=== PATIENT | male | born 1955 | race Hispanic/Latino ===

== ENCOUNTER 2019-05-18 09:41 | Emergency (ER) | payer SELFPAY ==
[2019-05-18 09:48] VITALS: BP 168/93; PULSE 65; RESP 18; TEMP 36.1; O2SAT 97
--- NOTE | 2019-05-18 09:58 | ED.GENADULT ---
HPI - General Adult General Chief complaint: Extremity Injury, Lower <Dandre Connell PA-C - Last Filed: 05/18/19 10:05> Stated complaint: r foot injury <Dandre Connell PA-C - Last Filed: 05/18/19 10:05> Time Seen by Provider: 05/18/19 09:48 <Dandre Connell PA-C - Last Filed: 05/18/19 10:05> Source: patient <Dandre Connell PA-C - Last Filed: 05/18/19 10:05> Mode of arrival: ambulatory <Dandre Connell PA-C - Last Filed: 05/18/19 10:05> Limitations: no limitations <Dandre Connell PA-C - Last Filed: 05/18/19 10:05> History of Present Illness HPI narrative: Patient is a 63-year-old diabetic male with history of gout presenting with 1 week duration of right great toe pain patient notes pain is similar to prior gout exacerbations is typically taken colchicine in the past. Patient notes moderate aching pain worse with any mild touch or manipulation. Patient denies fever chills injury or trauma <Dandre Connell PA-C - Last Filed: 05/18/19 10:05> Related Data Allergies/adverse reactions: Allergies Allergy/AdvReac Type Severity Reaction Status Date / Time No Known Allergies Allergy Verified 05/18/19 09:54 <Dandre Connell PA-C - Last Filed: 05/18/19 10:05> Review of Systems Review of Systems: Narrative: CONSTITUTIONAL: Denies fever, chills, or sweats. SKIN: Denies rash or itching. MUSCULOSKELETAL: Denies decreased range of motion or strength NEUROLOGIC: Denies numbness, or weakness. <Dandre Connell PA-C - Last Filed: 05/18/19 10:05> [facility] Past Medical History Medical History: Medical History Diabetes mellitus Gout Hypertension <Dandre Connell PA-C - Last Filed: 05/18/19 10:05> Social History Social History: Social History (Updated 05/18/19 @ 10:02 by Dandre Connell PA-C) Smoking status: Never smoker <Dandre Connell PA-C - Last Filed: 05/18/19 10:05> Exam Narrative: Exam Narrative: GENERAL: Well-appearing, well-nourished, and in no acute distress. HEAD: Normocephalic, atraumatic. EYES: PERRLA and EOMI. ENT: Nares clear, no rhinorrhea or epistaxis. Mucous membranes moist. CHEST: Clear to auscultation. No respiratory distress. No wheezes rales or rhonchi HEART: Regular rate and rhythm. No murmur heard. EXTREMITIES: Normal range of motion. No edema. Tenderness of the right great toe with no deformity SKIN: Warm, dry, no rash. NEURO: No focal deficits. Alert and oriented x3. Cranial nerves II through XII grossly intact PSYCH: Normal mood and affect. <ARCHANA Zimmerman Last Filed: 05/18/19 10:05> Course Course Emergency Course: Patient in the room in no distress aware of case findings treatment plan and diagnosis <ARCHANA Zimmerman Last Filed: 05/18/19 10:05> Vital Signs Vital signs: Vital Signs Temperature 36.1 C L 05/18/19 09:48 Pulse Rate 65 05/18/19 09:48 Respiratory Rate 18 05/18/19 09:48 Blood Pressure 168/93 H 05/18/19 09:48 Pulse Oximetry 97 05/18/19 09:48 Temperature 36.1 C L 05/18/19 09:48 Pulse Rate 65 05/18/19 09:48 Respiratory Rate 18 05/18/19 09:48 Blood Pressure 168/93 H 05/18/19 09:48 Pulse Oximetry 97 05/18/19 09:48 <ARCHANA Zimmerman Last Filed: 05/18/19 10:05> Vital Signs Temperature 36.1 C L 05/18/19 09:48 Pulse Rate 65 05/18/19 09:48 Respiratory Rate 18 05/18/19 09:48 Blood Pressure 168/93 H 05/18/19 09:48 Pulse Oximetry 97 05/18/19 09:48 Temperature 36.1 C L 05/18/19 09:48 Pulse Rate 65 05/18/19 09:48 Respiratory Rate 18 05/18/19 09:48 Blood Pressure 168/93 H 05/18/19 09:48 Pulse Oximetry 97 05/18/19 09:48 <Nay Hanson MD - Last Filed: 05/18/19 10:11> Medical Decision Making MDM Narrative Medical decision making narrative: Patients injury or pain is consistent with musculoskeletal etiology. No signs o
[2019-05-18] MEDS: COLCHICINE 0.6 MG TABLET 1.2 MG PO (10:12)
[2019-05-18] MEDS: KETOROLAC (*BKC) 60 MG/2 ML VIAL 30 MG IM (10:12)
== END 2019-05-18 10:40 | disposition home or self-care (01) ==
PROVIDERS: Emergency Provider Emergency Medicine; PCP Registered Nurse
DX: M10.9 Gout, unspecified (principal); E11.9 Type 2 diabetes mellitus without complications; I10 Essential (primary) hypertension
CPT/HCPCS: 96372; 99283; A9270; J1885

== ENCOUNTER 2020-01-20 14:22 | Emergency (ER) | payer OTHER, SELFPAY ==
--- NOTE | 2020-01-20 14:32 | ED.LOWEXIN ---
HPI - Extremity Injury (Lower) General Chief Complaint: Extremity Injury, Lower Stated Complaint: right foot pain, hx gout Time Seen by Provider: 01/20/20 14:30 History of Present Illness HPI Narrative: Pain in the right foot for the past few days consistent with previous gout flares. PCP prescribed colchicine yesterday. It is not working fast enough and he feels the pain is getting worse. No fever, chills, trauma, wound. Related Data Home Medications Medication Instructions Recorded Confirmed atenolol 100 mg PO 01/20/20 hydrochlorothiazide 25 mg PO 01/20/20 lisinopril 40 mg PO 01/20/20 metformin 1,000 mg PO 01/20/20 pravastatin 80 mg PO 01/20/20 Allergies Allergy/AdvReac Type Severity Reaction Status Date / Time No Known Allergies Allergy Verified 01/20/20 14:44 Review of Systems Review of Systems: All systems reviewed & are unremarkable except as noted in HPI and below Constitutional: Constitutional: Denies chills and Denies fever(s) Cardiovascular: Cardiovascular: Denies chest pain Respiratory: Respiratory: Denies dyspnea Gastrointestinal: Gastrointestinal: Denies nausea Neurologic: Denies numbness and Denies weakness [facility] Past Medical History Medical History Diabetes mellitus Gout Hypertension Social History Social History Smoking status: Never smoker Gender identity (if verbalized by the patient): Male Exam Const: General: no acute distress and alert Orientation/consciousness: patient oriented x3 HENMT: Head: normal to inspection Resp: Effort & Inspection: normal respiratory effort Auscultation: clear to auscultation bilaterally Cardio: Rate: regular rate Rhythm: regular rhythm Other: 2 + right DP Skin: Other: Mild redenss to dorsum of right foot. Neuro: General: patient oriented x3, moves all extremities and no focal motor deficits Speech: normal speech Extrem: Other: Tenderness over mid foot on the right Course Vital Signs Vital signs: Vital Signs Temperature 36.7 C 01/20/20 14:40 Pulse Rate 64 01/20/20 14:40 Respiratory Rate 18 01/20/20 14:40 Blood Pressure 171/80 H 01/20/20 14:40 Pulse Oximetry 100 01/20/20 14:40 Temperature 36.7 C 01/20/20 14:40 Pulse Rate 68 01/20/20 15:11 Respiratory Rate 14 01/20/20 15:11 Blood Pressure 152/87 H 01/20/20 15:11 Pulse Oximetry 99 01/20/20 15:11 MDM - Extremity Injury (Lower) MDM Narrative Medical decision making narrative: He is in significant Pain I will augment the colchicine with a steroid and small amount of pain medication. Medical Records Attestation: I reviewed the patient's medical records. Discharge Plan Discharge Clinical Impression: Gout Patient Disposition: Home, Self-Care Condition: Stable Instructions: Gout (ED) Prescriptions: New prednisone 20 mg tablet 40 mg PO DAILY Qty: 10 RF: 0 hydrocodone-acetaminophen [[place]] 5-325 mg tablet 1 tablet PO Q6H PRN (Reason: pain) Qty: 5 RF: 0 No Action colchicine 0.6 mg capsule 0.6 mg PO BID Qty: 4 RF: 0 indomethacin 75 mg capsule, extended release 75 mg PO DAILY Qty: 4 RF: 0 atenolol 100 mg tablet 100 mg PO RF: 0 pravastatin 80 mg tablet 80 mg PO RF: 0 metformin 1,000 mg tablet 1,000 mg PO RF: 0 hydrochlorothiazide 25 mg tablet 25 mg PO RF: 0 lisinopril 40 mg tablet 40 mg PO RF: 0 Follow-up/Referrals: Akil,KARLA Zaman [Primary Care Provider] -
[2020-01-20 14:40] VITALS: BP 171/80; PULSE 64; RESP 18; TEMP 36.7; O2SAT 100
[2020-01-20] MEDS: HYDROcodone/acetaminophen (*CRX) 5-325 MG TABLET 1 TAB PO (14:53)
[2020-01-20] MEDS: predniSONE 20 MG TABLET 40 MG PO (14:53)
[2020-01-20 15:11] VITALS: BP 152/87; PULSE 68; RESP 14; O2SAT 99
== END 2020-01-20 15:13 | disposition home or self-care (01) ==
PROVIDERS: Emergency Provider Emergency Medicine; PCP Registered Nurse
DX: M10.9 Gout, unspecified (principal); E11.9 Type 2 diabetes mellitus without complications; Z79.84 Long term (current) use of oral hypoglycemic drugs
CPT/HCPCS: 99283; A9270; J7512

== ENCOUNTER 2020-03-26 10:23 | Emergency (ER) | payer OTHER, SELFPAY ==
--- NOTE | ~2020-03-26 | CT_ITS ---
EXAMINATION: CT soft tissue neck w con DATE: 03/26/2020 13:07 INDICATION: Right throat pain, cough for 2 months TECHNIQUE: Computed tomography (CT) of the neck was performed with 75 mL Omnipaque-350 intravenous co ntrast. Automated exposure control and iterative reconstruction technique were employed. Exam dose: 555.17 mGy-cm total exam DLP. COMPARISON: None FINDINGS: No cervical mass lesion or lymphadenopathy is detected. Parotid glands and submandibular glands are unremarkable. Normal size and homogeneous enhancement of the thyroid gland. No superior mediastinal mass lesion or lymphadenopathy. Normal caliber of the thor acic aortic arch. The airway is patent. Minimal new comparison thickening of the maxillary sinuses. The included paranasal sinuses are otherw ise unremarkable. Normal development and aeration of the mastoid air cells. The included upper lung kumar are clear. There is degenerative spurring throughout the cervical spine. There is prominent degenerative spurrin g of the upper thoracic spine. IMPRESSION: No cervical mass lesion or lymphadenopathy. Reviewed, dictated and finalized at Location [facility]. Reviewed, dictated and finalized at location A. ECTIVE BARGAINING SPECIALIST
--- NOTE | ~2020-03-26 | XR_ITS ---
EXAMINATION: XR chest 1V portable EXAM DATE: 03/26/2020 12:16 INDICATION: Cough. TECHNIQUE: Portable AP frontal chest x-ray was obtained. Comparison is made to prior examination from 04/07/2017. FINDINGS: The lungs are clear. There are no pleural effusions. Cardiac silhouette is prominent but magnified on this AP technique. There is no pneumothorax suspected. The bones and soft tissues are unremarkable. There is no significant interval change. IMPRESSION: No acute cardiopulmonary findings. Reviewed, dictated and finalized at location B. K MANAGER
[2020-03-26 10:31] VITALS: BP 199/91; PULSE 61; RESP 16; TEMP 35.7
--- NOTE | 2020-03-26 11:32 | ED.GENADULT ---
HPI - General Adult General Chief complaint: Upper Respiratory Infection Stated complaint: Cough x2 months, back pain Time Seen by Provider: 03/26/20 11:31 History of Present Illness HPI narrative: Patient 64 years old male complaining of dry cough for the last 2 months. Patient reported that the cough getting worse over the last 3 days. Worse laying down flat, better laying down on either sides. Patient also been complaining of right neck and submandibular tenderness for years. Patient denies any fever, chills, nausea, vomiting, chest pain, shortness of breath, COVID-19 infection or exposure to anybody known having COVID-19. Patient does not smoke and drinks occasionally, history of diabetes hypertension and hyperlipidemia. Related Data Home Medications Medication Instructions Recorded Confirmed atenolol 100 mg PO HS 01/20/20 hydrochlorothiazide 25 mg PO HS 01/20/20 lisinopril 40 mg PO DAILY 01/20/20 metformin 1,000 mg PO 01/20/20 pravastatin 80 mg PO HS 01/20/20 Allergies Allergy/AdvReac Type Severity Reaction Status Date / Time No Known Allergies Allergy Verified 03/26/20 10:35 Review of Systems Review of Systems: Narrative: CONSTITUTIONAL: Denies fever, chills, or sweats. EYES: Denies visual changes, redness, or discharge. ENT: Denies rhinorrhea, congestion, sore throat, or otalgia. CARDIOVASCULAR: Denies chest pain, palpitations, or edema. RESPIRATORY: Denies cough or dyspnea. GASTROINTESTINAL: Denies abdominal pain, nausea, vomiting, or diarrhea. GENITOURINARY: Denies dysuria or hematuria. SKIN: Denies rash or itching. MUSCULOSKELETAL: Denies back pain, joint pain, or myalgia. NEUROLOGIC: Denies headache, numbness, or weakness. PSYCHIATRIC: Denies anxiety or depression. PMFSH Past Medical History Medical History Diabetes mellitus Gout Hypertension Social History Social History Smoking status: Never smoker Gender identity (if verbalized by the patient): Male Exam Narrative: Exam Narrative: General appearance: Well-developed, well-nourished Skin: Normal color Head: Normocephalic, nontraumatic Eyes: Clear conjunctiva ENT: Oropharynx normal, ears normal, nose normal, right neck examination showed no swelling, no mass, no lymphadenopathy, no rash. Neck: Supple, nontender Chest and respiratory: Airway patent, no respiratory distress, no accessory muscle use Heart: Regular rate/rhythm Abdomen: Soft, nontender, no organomegaly, quiet bowel sounds Vascular: Normal peripheral pulses, normal capillary refill. Musculoskeletal: Normal range of motion, nontender back Neurologic: Alert and oriented ?3, RN WOUND CARE is normal as tested, no gross motor deficit Course Reevaluation(s) Reevaluation #1: Patient blood work-up and physical exam showed no significant abnormality. Patient sinus bradycardia high likely secondary to the beta-anne. Patient will be discharged on Tessalon and albuterol treatment to follow-up with certified first assistant for further evaluation. Patient agreed with discharge. Date: 03/26/20 Time: 13:38 Vital Signs Vital signs: Vital Signs Temperature 35.7 C L 03/26/20 10:31 Pulse Rate 61 03/26/20 10:31 Respiratory Rate 16 03/26/20 10:31 Blood Pressure 199/91 H 03/26/20 10:31 Temperature 35.7 C L 03/26/20 10:31 Pulse Rate 51 L 03/26/20 12:20 Respiratory Rate 19 03/26/20 12:20 Blood Pressure 191/90 H 03/26/20 12:20 Pulse Oximetry 100 03/26/20 12:20 Medical Decision Making [facility] Narrative Medical decision making narrative: Patient presents with dry cough for the last 2 months. L
--- NOTE | 2020-03-26 11:52 | ECG_ITS ---
Measurements Intervals [place] Rate: 50 P: -1 [place]: 192 QRS: -11 QRSD: 92 T: 36 QT: 448 QTc: 409 Interpretive Statements SINUS BRADYCARDIA NONSPECIFIC T-WAVE ABNORMALITY- ANTEROLAT/INF LEADS BASELINE ARTIFACT- I, III, AVL BORDERLINE ECG Electronically Signed On 03-26-2020 12:52:06 SOYFREEZE OPERATOR by Amandeep Gonzalez D.O.
[2020-03-26 12:20] VITALS: BP 191/90; PULSE 51; RESP 19; O2SAT 100
[2020-03-26 12:37] LABS: Basophils Percent Auto 0.5 % (0.2-1.2); Eosinophils Percent Auto 0.6 % (0-4.4); Hematocrit 47.7 % (42.0-52.0); Hemoglobin 16.9 g/dL (14.0-18.0); Immature Granulocyte Absolute 0.01 K/mm3 (0.00-0.031); Immature Granulocyte Percent A 0.2 % (0-0.5); Lymphocytes Absolute Auto 2.48 K/mm3 (0.9-3.2); Lymphocytes Percent Auto 39.1 % (18.3-44.2); Mean Corpuscular HGB Conc 35.4 g/dl (32-36); Mean Corpuscular Hemoglobin 30.2 pg (26-34); Mean Corpuscular Volume 85.3 fl (80-100); Monocytes Absolute Auto 0.5 K/mm3 (0.1-0.6); Monocytes Percent Auto 7.4 % (2.6-8.5); Neutrophils Absolute Auto 3.3 K/mm3 (1.3-6.7); Neutrophils Percent Auto 52.2 % (45.5-73.1); Platelet Count Result 206 k/mm3 (150-375); Red Blood Count 5.59 M/mm3 (4.6-6.20); Red Cell Distribution Width 13.3 % (11.5-14.5); White Blood Count 6.3 K/mm3 (4.5-10.0)
[2020-03-26 12:45] LABS: Alanine Aminotransferase 20 U/L (4-50); Albumin Level 4.6 g/dL (3.5-5.1); Alkaline Phosphatase 58 U/L (38-126); Anion Gap 6 mmol/L (8-16); Aspartate Amino Transferase 26 U/L (17-59); Bilirubin,Total 0.8 mg/dL (0.2-1.3); Blood Urea Nitrogen 24 mg/dL (9-20); Calcium 9.9 mg/dL (8.4-10.2); Carbon Dioxide 34 mmol/L (22-30); Chloride 98 mmol/L (98-107); Estimated CRCL calculation 61 ml/min; Estimated Glomerular Filt Rate > 60; Glucose 196 mg/dL (75-110); Potassium 3.9 mmol/L (3.4-5.0); Sodium 138 mmol/L (137-145)
[2020-03-26 12:57] LABS: NT Pro B Type Natriuretic Pept 122 PG/ML (5-100); Troponin I < 0.012 ng/mL (0.000-0.034)
[2020-03-26 13:59] VITALS: BP 178/91; PULSE 55; RESP 16; O2SAT 100
== END 2020-03-26 14:01 | disposition home or self-care (01) ==
PROVIDERS: Emergency Provider Emergency Medicine; PCP Registered Nurse
DX: R00.1 Bradycardia, unspecified (principal); R05 Cough; E11.9 Type 2 diabetes mellitus without complications; Z79.84 Long term (current) use of oral hypoglycemic drugs; I10 Essential (primary) hypertension
CPT/HCPCS: 36415; 70491; 71045; 80053; 83880; 84443; 84484; 85025; 87804; 93005; 99284; Q9967

== ENCOUNTER 2020-06-03 09:05 | Outpatient (CLI) | payer OTHER, SELFPAY ==
[2020-06-07 02:58] LABS: Immunoglobulin E 35 kU/L (<=114)
== END 2020-06-03 09:06 | disposition home or self-care (01) ==
PROVIDERS: PCP Registered Nurse; Visit Provider Internal Medicine Critical Care Medicine
DX: R05 Cough (principal)
CPT/HCPCS: 36415; 82785; 86606

== ENCOUNTER 2020-06-18 09:27 | Outpatient (CLI) | payer OTHER, SELFPAY ==
--- NOTE | ~2020-06-18 | CT_ITS ---
EXAMINATION:CT chest high resolution wo co DATE: 06/18/2020 09:43 INDICATION: Cough. TECHNIQUE: Computed tomography (CT) of the chest was performed without intravenous contrast. Automate d exposure control and iterative reconstruction technique were employed. The dose-length product (DLP ) was 349.62 mGy-cm. COMPARISON: CT abdomen and pelvis 09/15/2017, neck CT 03/26/2020 FINDINGS: A calcified right lung nodule and calcified right hilar lymph nodes are consistent with old granulomatous disease. No bronchiectasis or honeycombing. No pleural effusion. The heart size is nor mal. There are coronary artery calcifications. No pericardial effusion. There are no pathologically e nlarged lymph nodes. There are cysts in the kidneys measuring up to 4.0 cm on the right. There is mil d bilateral gynecomastia. There are bridging endplate osteophytes at multiple levels in the spine, co nsistent with diffuse idiopathic skeletal hyperostosis (DISH). IMPRESSION: 1. No significant lung disease. Reviewed, dictated and finalized at location A.
== END 2020-06-18 09:28 | disposition home or self-care (01) ==
PROVIDERS: PCP Registered Nurse; Visit Provider Internal Medicine Critical Care Medicine
DX: R05 Cough (principal)
CPT/HCPCS: 71250

== ENCOUNTER 2020-06-26 08:02 | Outpatient (CLI) | payer OTHER, SELFPAY ==
--- NOTE | 2020-06-26 15:07 | P.PCNPFT_ITS ---
PFT Procedure Performed PFT Procedure Performed Spirometry with Pre/Post Bronchodilator Plethysmography (Lung Vol) Diffusing Cap (DLCO) Flow Vol Loop PFT Interpretation This is a pulmonary function test with pre and post-bronchodilator spirometry, plethysmography and diffusing capacity. The test was performed and results interpreted in accordance with the 2019 and 2005 ATS/ERS Task Force guidelines respectively using the Global Lung Function Initiative-2012 reference equations. Patient demonstrated good effort and cooperation. Reproducibility criteria were met. The quality of the pre bronchodilator spirometry maneuver was Grade A and post bronchodilator spirometry maneuver was Grade A. Findings: Spirometry: There is decreased maximal expiratory airflow at low lung volumes with a mildly concave expiratory flow tracing. The pre bronchodilator FVC is 3.10 L, 87% predicted. The pre bronchodilator FEV1 is 2.17 L, 77% predicted. The FEV1: FVC ratio is 70%. The post bronchodilator FVC is 3.27 L, representing a 6% increase. The post bronchodilator FEV1 is 2.20 L, representing 1% increase. Plethysmography: The total lung capacity is 3.82 L, 61% predicted. The functional residual capacity is 1.08 L, 34% predicted. The residual volume is 0.59 L, 29% predicted. Diffusion capacity: The absolute diffusion capacity is 20.7, 79% predicted. The diffusing capacity corrected for alveolar volume is 4.89, 111% predicted. Impression: There is a combined obstructive and restrictive ventilatory abn ormality. There are no guidelines to assign the severity of obstruction and restriction with a combined abnormality. In my opinion, given the mildly concaved expiratory flow tracing and minimally decreased FEV1: FVC ratio and mild restrictive abnormality I would state there is a mild obstructive abnormality. There is no significant improvement after inhaling a single dose of albuterol. The diffusing capacity is normal. There are no prior studies for comparison
== END 2020-06-26 08:03 | disposition home or self-care (01) ==
LOC: ANHPFT 08:03
PROVIDERS: PCP Registered Nurse; Visit Provider Internal Medicine Critical Care Medicine
DX: R05 Cough (principal); R94.2 Abnormal results of pulmonary function studies
CPT/HCPCS: 94060; 94726; 94729

== ENCOUNTER 2021-06-28 11:22 | Outpatient (CLI) | payer OTHER, SELFPAY ==
--- NOTE | 2021-06-28 | ECG_ITS ---
Measurements Intervals [place] Rate: 54 P: 51 VT: 230 QRS: -27 QRSD: 119 T: -9 QT: 453 QTc: 429 Interpretive Statements SINUS BRADYCARDIA WITH FIRST DEGREE AV BLOCK INTRAVENTRICULAR CONDUCTION DELAY BORDERLINE T WAVE ABNORMALITY- INFERIOR LEADS BASELINE WANDER- I, II, AVR, AVL, AVF ABNORMAL ECG Electronically Signed On 06-28-2021 12:58:09 CDT by Amandeep Gonzalez D.O.
--- NOTE | ~2021-06-28 | XR_ITS ---
XR chest 2V DATE: 06/28/2021 11:49 INDICATION: Dyspnea since Covid infection in 2020 TECHNIQUE: PA and lateral views COMPARISON: CT chest high resolution scan 03/26/2020 portable AP chest FINDINGS: Normal heart size. Mild aortic unfolding. No hilar or mediastinal enlargement. Mild right apical capping. No pulmonary infiltrate or consolidation, pleural effusion or pulmonary vascular congestion or pneumo thorax is detected. Diffuse idiopathic skeletal hyperostosis of the thoracic spine. There is mild degenerative change at the acromioclavicular joints. IMPRESSION: No active cardiopulmonary disease Reviewed, dictated and finalized at location B.
== END 2021-06-28 11:23 | disposition home or self-care (01) ==
PROVIDERS: PCP Registered Nurse; Visit Provider Registered Nurse
DX: R06.00 Dyspnea, unspecified (principal); R94.31 Abnormal electrocardiogram [ECG] [EKG]
CPT/HCPCS: 71046; 93005

== ENCOUNTER 2021-07-12 19:07 | Emergency (ER) | payer OTHER, SELFPAY ==
--- NOTE | ~2021-07-12 | XR_ITS ---
EXAM: XR lumbar spine 2-3V DATE: 07/12/2021 19:54 HISTORY: pain . COMPARISON: None available. FINDINGS: 6 nonrib-bearing lumbar-type vertebral bodies. The last fully formed disc will be designat ed L6-S1. Bilateral sacralization of L6. Pedicles intact. 1 to 2 mm retrolisthesis of L3 on L4 and L4 on L5. Vertebral body heights preserved. Disc spaces maintained, with multilevel marginal osteophyto sis including bridging anterior osteophytes. Lower lumbar facet sclerosis. No fracture or dislocation . IMPRESSION: No acute osseous finding in the lumbar spine. Reviewed, dictated and finalized at location K.
[2021-07-12 19:10] VITALS: BP 173/72; PULSE 72; RESP 16; TEMP 37.3; O2SAT 98
--- NOTE | 2021-07-12 19:43 | ED.BACK ---
HPI - Back Pain/Injury General Chief Complaint: Back Pain/Injury Stated Complaint: lower back Time Seen by Provider: 07/12/21 19:16 Source: patient Mode of arrival: ambulatory Limitations: no limitations History of Present Illness HPI Narrative: Patient is a 65-year-old male complaining of right lower back pain, 8 out of 10, dull, aching, worse with movement after he missed a step walking down a ladder yesterday, stepped the wrong way and that is when his back started hurting. Patient denies any falls. Patient denies any chest pain, shortness of breath, abdominal pain, urinary symptoms, fever or chills. Patient denies any weakness, numbness or incontinence. Related Data Allergies Allergy/AdvReac Type Severity Reaction Status Date / Time No Known Allergies Allergy Verified 07/12/21 19:15 Review of Systems Review of Systems: All systems reviewed & are unremarkable except as noted in HPI and below Constitutional: Constitutional: Denies body ache(s), Denies chills, Denies excessive sweating, Denies fatigue, Denies fever(s), Denies headache(s), Denies lethargy, Denies malaise, Denies weakness and Denies weight loss Eyes: Eyes: Denies blurry vision, Denies change in vision and Denies loss of vision ENT: Denies dizziness, Denies ear discharge, Denies headache(s), Denies lip swelling, Denies epistaxis, Denies nasal congestion, Denies neck pain, Denies throat swelling and Denies tongue swelling Cardiovascular: Cardiovascular: Denies chest pain, Denies chest pain at rest, Denies chest pain with activity, Denies diaphoresis, Denies rapid heart rate, Denies edema, Denies irregular heart rhythm, Denies lightheadedness, Denies palpitations, Denies dyspnea and Denies dyspnea on exertion Respiratory: Respiratory: Denies chest congestion, Denies cough, Denies hemoptysis, Denies dyspnea and Denies dyspnea on exertion Gastrointestinal: Gastrointestinal: Denies abdominal pain, Denies melena, Denies hematochezia, Denies diarrhea, Denies nausea, Denies vomiting and Denies hematemesis Musculoskeletal: Musculoskeletal: Reports as per HPI, Denies abnormal gait, Denies deformity, Denies joint swelling, Denies limited range of motion, Denies neck pain and Denies numbness Neurologic: Denies Abnormal speech present, Denies abnormal gait, Denies confusion, Denies dizziness, Denies headache(s), Denies focal weakness, Denies loss of vision, Denies numbness, Denies Other visual disturbances, Denies Sensory deficit (Neuro) and Denies weakness Psychiatric: Psychiatric: Denies confusion, Denies depression, Denies auditory hallucinations, Denies homicidal ideation and Denies suicidal ideation Endocrine: Endocrine: Denies cold intolerance, Denies excessive sweating, Denies fatigue, Denies heat intolerance and Denies palpitations Hematologic/Lymphatic: Hematologic/Lymphatic: Denies easy bleeding and Denies easy bruising Allergic/Immunologic: Allergic/Immunologic: Denies lip swelling, Denies throat swelling and Denies tongue swelling PMFSH Comments Past medical history: None Family history: None Social history: Non-smoker no EtOH or drug use Exam Const: General: cooperative, healthy appearing, comfortable, no acute distress, well developed, alert and awake; No confusion Orientation/consciousness: oriented to person, oriented to place, oriented to time, patient oriented x3 and No confusion Limitations: no limitations HENMT: Head: normal to inspection, normocephalic and atraumatic Ears: hearing grossly normal bilaterally, TM normal on the right and TM normal on the left General nose exam: Normal external nose present, Normal nares present and No nasal discharge present Face and sinus: normal facial exam Mouth: Yes Normal oral and palatal mucosa present, Yes lip normal, Yes tongue normal and Yes oropharynx normal Throat: posterior oropharynx normal, tonsils normal and uvula midline Eyes: General: appearance normal, both eyes and all related structures Pupils: Equal,
--- NOTE | 2021-07-12 19:48 | PC.NURSE ---
pt in radiology at this time.
[2021-07-12] MEDS: HYDROcodone/acetaminophen (*CRX) 5-325 MG TABLET 1 TAB PO (20:14)
[2021-07-12] MEDS: KETOROLAC 30 MG/ML VIAL (*BKC) IV PUSH (20:14)
[2021-07-12] MEDS: diazePAM (*CRX) 5 MG TABLET PO (20:14)
[2021-07-12 20:22] VITALS: BP 161/82; PULSE 85; RESP 18; O2SAT 100
[2021-07-12 21:03] VITALS: BP 161/82; PULSE 65; RESP 18; O2SAT 99
== END 2021-07-12 20:50 | disposition home or self-care (01) ==
PROVIDERS: Emergency Provider Emergency Medicine; PCP Registered Nurse
DX: S39.012A Strain of muscle, fascia and tendon of lower back, initial encounter (principal); X50.9XXA Other and unspecified overexertion or strenuous movements or postures, initial encounter
CPT/HCPCS: 72100; 96374; 99284; A9270; J1885

== ENCOUNTER 2021-12-31 19:08 | Emergency (ER) | payer OTHER, SELFPAY ==
--- NOTE | ~2021-12-31 | CT_ITS ---
EXAMINATION: CT abdomen pelvis wo con DATE: 12/31/2021 22:48 INDICATION: Left flank pain. TECHNIQUE: Computed tomography (CT) of the abdomen and pelvis was performed without intravenous contr ast. Automated exposure control and iterative reconstruction technique were employed. The dose-length product was 309.10 mGy-cm. COMPARISON: CT abdomen and pelvis 09/15/2017, 08/21/2015 FINDINGS: The visualized portions of the lung bases demonstrate mild atelectasis. No pleural effusion . The heart size is normal. There are coronary artery calcifications. No pericardial effusion. There is bilateral gynecomastia. There is a small sliding hernia. The liver and spleen are normal. There ar e gallstones in the gallbladder, which is normal in size. The pancreas and adrenal glands are normal. There are numerous cysts in each kidney measuring up to 5.0 cm on the left. There is a 1.8 cm hemorr hagic cyst in left kidney. Small calcifications in right kidney may be parenchymal. There is a 2.3 cm mass in right kidney measuring soft tissue attenuation. There is an 8 mm stone in left kidney. There is diverticulosis of the colon without evidence of diverticulitis. The appendix is normal. There are no dilated loops of bowel. There are no pathologically enlarged lymph nodes. There is no free intrap eritoneal fluid. There is mild thoracolumbar spondylosis. IMPRESSION: 1. Nonobstructing left kidney stone. 2. 2.3 cm mass in anterior right kidney suspicious for renal cell carcinoma. Abdomen MRI or CT withou t and with contrast is recommended. Reviewed, dictated and finalized at location A. 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 Nonobstructing left kidney stone. 2. 2.3 cm mass in anterior right kidney suspicious for renal cell carcinoma. Ab domen MRI or CT without and with contrast is recommended.
[2021-12-31 19:46] VITALS: BP 142/83; PULSE 65; RESP 16; TEMP 37.5; O2SAT 100
--- NOTE | 2021-12-31 22:33 | ED.GENADULT ---
HPI - General Adult General Chief complaint: Urogenital-Male <Layne Garland PA-C - Last Filed: 01/01/22 02:13> Stated complaint: left flank pain <ARCHANA Downs Last Filed: 01/01/22 02:13> Time Seen by Provider: 12/31/21 22:17 <ARCHANA Downs Last Filed: 01/01/22 02:13> Limitations: language barrier <ARCHANA Downs Last Filed: 01/01/22 02:13> History of Present Illness HPI narrative: Patient is a 66-year-old male with history of kidney stones and polycystic kidney disease here for evaluation of left flank pain for the past day and a half. Patient states the pain starts in his left flank and wraps around the front of his abdomen into his left groin. Pain is worse with movement of the thorax and is improved with rest. He is attempted Tylenol without significant relief of his pain. He has a history of kidney stones but states this pain is different. No nausea, vomiting, hematuria, urinary frequency or urgency. <ARCHANA Downs Last Filed: 01/01/22 02:13> Related Data Home medications: Home Medications Medication Instructions Recorded Confirmed atenolol 100 mg tablet 100 mg PO HS 01/20/20 10/20/20 hydrochlorothiazide 25 mg tablet 25 mg PO HS 01/20/20 10/20/20 lisinopril 40 mg tablet 40 mg PO DAILY 01/20/20 10/20/20 metformin 1,000 mg tablet 1,000 mg PO 01/20/20 10/20/20 pravastatin 80 mg tablet 80 mg PO HS 01/20/20 10/20/20 amlodipine 2.5 mg tablet 2.5 mg PO 04/21/20 10/20/20 blood sugar diagnostic #10 ea 04/21/20 10/20/20 lancets 28 gauge #100 ea 04/21/20 10/20/20 <ARCHANA Downs Last Filed: 01/01/22 02:13> Allergies/adverse reactions: Allergies Allergy/AdvReac Type Severity Reaction Status Date / Time NSAIDS (Non-Steroidal AdvReac Other Verified 12/31/21 19:50 Anti-Inflamma <Layne Garland PA-C - Last Filed: 01/01/22 02:13> Review of Systems Review of Systems: Gen.: Denies fevers or chills Eyes: Denies eye pain or visual change ENT: Denies congestion Respiratory: Denies shortness of breath or cough CV: Denies chest pain or palpitations GI: Denies abdominal pain nausea, emesis or diarrhea denies burning, urgency, frequency or hematuria Musculoskeletal: Reports left flank pain. Denies muscle pain Neuro: Denies numbness, tingling, weakness or focal weakness Skin: Denies rash Except as documented, all other systems reviewed and negative <Layne Garland PA-C - Last Filed: 01/01/22 02:13> PENDING SALE TO [facility] Past Medical History Medical History: Medical History Biliary sludge Chronic kidney disease, stage 2 (mild) Cystic disease of liver Diabetes mellitus Diverticulosis of sigmoid colon Gout High cholesterol Hyperlipemia Hypertension Impotence Lesion of liver Obesity Osteoarthritis Polycystic kidney disease <Layne Garland PA-C - Last Filed: 01/01/22 02:13> Surgical History Surgical History: Surgical History H/O hernia repair <Layne Garland PA-C - Last Filed: 01/01/22 02:13> Family History Family History: Family History (System 09/20/21 @ 12:24 by Trey Barry) Mother , 86 Kidney disease End stage renal disease Father Hypertension Son Hypercholesteremia Sibling Hypertension <Layne Garland PA-C - Last Filed: 01/01/22 02:13> Social History Social History: Social History (System 09/20/21 @ 12:24 by Trey Barry) Smoking status: Never smoker Alcohol intake: current Alcohol use details: drinks beer on weekends, up to 10 beers in an evening, trying to decrease the amount Substance use: never Additional living arrangements comments: , daughter, son-in-law and granddaughter Gender identity (if verbalized by the patient): Male <Layne Garland PA-C - Cedric Fi
[2021-12-31 23:00] VITALS: PULSE 63; RESP 16; O2SAT 99
[2021-12-31] MEDS: MORPHINE SULFATE (*CRX) 4 MG/ML INJ IV PUSH (23:14)
--- NOTE | 2021-12-31 23:22 | PC.NURSE ---
Patient report given to Whitley CHANDRA. All questions answered and care of patient transferred.
[2021-12-31 23:26] LABS: Basophils Percent Auto 0.3 % (0.2-1.2); Eosinophils Absolute Auto 0.1 K/mm3 (0-0.3); Eosinophils Percent Auto 1.3 % (0-4.4); Hematocrit 37.5 % (42.0-52.0); Hemoglobin 12.9 g/dL (14.0-18.0); Immature Granulocyte Absolute 0.04 K/mm3 (0.00-0.031); Immature Granulocyte Percent A 0.4 % (0-0.5); Lymphocytes Absolute Auto 2.38 K/mm3 (0.9-3.2); Lymphocytes Percent Auto 22.6 % (18.3-44.2); Mean Corpuscular HGB Conc 34.4 g/dl (32-36); Mean Corpuscular Hemoglobin 29.6 pg (26-34); Mean Platelet Volume 10.4 fl (7.4-10.4); Monocytes Absolute Auto 0.8 K/mm3 (0.1-0.6); Monocytes Percent Auto 7.5 % (2.6-8.5); Neutrophils Absolute Auto 7.2 K/mm3 (1.3-6.7); Neutrophils Percent Auto 67.9 % (45.5-73.1); Platelet Count Result 247 k/mm3 (150-375); Red Blood Count 4.36 M/mm3 (4.6-6.20); Red Cell Distribution Width 13.9 % (11.5-14.5); White Blood Count 10.6 K/mm3 (4.5-10.0)
[2021-12-31 23:27] VITALS: PULSE 69; RESP 16; O2SAT 99
[2021-12-31 23:30] VITALS: PULSE 66; RESP 16; O2SAT 100
[2021-12-31 23:31] VITALS: BP 146/75; PULSE 71; RESP 20; O2SAT 99
[2021-12-31 23:40] LABS: Alanine Aminotransferase 22 U/L (6-50); Albumin Level 4.5 g/dL (3.5-5.1); Alkaline Phosphatase 75 U/L (38-126); Anion Gap 15 mmol/L (8-16); Aspartate Amino Transferase 24 U/L (17-59); Bilirubin,Total 0.6 mg/dL (0.2-1.3); Blood Urea Nitrogen 26 mg/dL (9-20); Calcium 9.4 mg/dL (8.4-10.2); Carbon Dioxide 28 mmol/L (22-30); Chloride 99 mmol/L (98-107); Estimated CRCL calculation 49 ml/min; Estimated Glomerular Filt Rate 51; Glucose 138 mg/dL (65-110); Potassium 3.8 mmol/L (3.4-5.0); Sodium 142 mmol/L (137-145)
[2021-12-31 23:47] VITALS: PULSE 62; RESP 14; O2SAT 98
[2022-01-01] VITALS (9 sets, daily range): BP systolic 128–138; BP diastolic 70–75; PULSE 66–69; RESP 13–19; O2SAT 98–100
[2022-01-01 00:29] LABS: Appearance Urine Clear (Clear); Bilirubin Urine Negative (Negative); Blood Urine Negative (Negative); Color Urine Yellow (Yellow); Glucose Urine UA Negative (Negative); Ketones Urine Negative (Negative); Leukocyte Esterase Ur Negative LEU/UL (Negative); Nitrate Urine Negative (Negative); Protein Urine Negative (Negative); Urobilinogen Urine 0.2 mg/dL (<2.0)
[2022-01-01 00:42] LABS: Add Urine Microscopic? NO
== END 2022-01-01 00:51 | disposition home or self-care (01) ==
PROVIDERS: Emergency Provider Emergency Medicine; PCP Registered Nurse
DX: R10.9 Unspecified abdominal pain (principal); N28.89 Other specified disorders of kidney and ureter; E11.22 Type 2 diabetes mellitus with diabetic chronic kidney disease; I12.9 Hypertensive chronic kidney disease with stage 1 through stage 4 chronic kidney disease, or unspecified chronic kidney disease; N18.2 Chronic kidney disease, stage 2 (mild); Q61.3 Polycystic kidney, unspecified; E78.5 Hyperlipidemia, unspecified; M10.9 Gout, unspecified; M19.90 Unspecified osteoarthritis, unspecified site; E66.9 Obesity, unspecified; Z68.32 Body mass index [BMI] 32.0-32.9, adult; Z87.442 Personal history of urinary calculi; Z79.84 Long term (current) use of oral hypoglycemic drugs; N20.0 Calculus of kidney
CPT/HCPCS: 36415; 74176; 80053; 81003; 85025; 96374; 99284; J2270

== ENCOUNTER 2022-01-17 12:43 | Outpatient (CLI) | payer OTHER, SELFPAY ==
--- NOTE | ~2022-01-17 | CT_ITS ---
EXAMINATION: CT abdomen pelvis wo/w con DATE: 01/17/2022 13:13 INDICATION: Kidney mass. TECHNIQUE: Computed tomography (CT) of the abdomen and pelvis was performed without and with 100 mL O mnipaque 350 intravenous contrast. Automated exposure control and iterative reconstruction technique were employed. The dose-length product was 1012.92 mGy-cm. COMPARISON: CT abdomen and pelvis 12/31/2021 FINDINGS: The visualized portions of the lung bases demonstrate minimal atelectasis. There are bilate ral posterior diaphragmatic hernias containing fat. No pleural effusion. The heart size is normal. No pericardial effusion. The liver, gallbladder, spleen, pancreas, and adrenal glands are normal. There are numerous cysts in each kidney measuring up to 5.2 cm on the left. There are hemorrhagic cysts in the kidneys measuring up to 2.4 cm on the right. There are two 6 mm stones in left kidney. There is diverticulosis of the colon without evidence of diverticulitis. The appendix is normal. There are no dilated loops of bowel. There are no pathologically enlarged lymph nodes. There is no free intraperit lam fluid. There is mild thoracolumbar spondylosis. IMPRESSION: 1. Polycystic kidney disease. No evidence of malignancy. Reviewed, dictated and finalized at location A. 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
== END 2022-01-17 12:44 | disposition home or self-care (01) ==
PROVIDERS: PCP Registered Nurse; Visit Provider Internal Medicine Nephrology
DX: N28.89 Other specified disorders of kidney and ureter (principal); Q61.3 Polycystic kidney, unspecified
CPT/HCPCS: 74178; Q9967

== ENCOUNTER 2022-07-15 06:49 | Outpatient (CLI) | payer OTHER, SELFPAY ==
--- NOTE | ~2022-07-15 | XR_ITS ---
Thoracic spine: Clinical Indication: Back pain AP and lateral views were performed. No fracture is seen. There is normal alignment of the vertebrae. The intervertebral disc spaces appe ar normal. There is DISH of the thoracic spine. Paravertebral soft tissues appear normal. Impression: DISH of the thoracic spine. Reviewed, dictated and finalized at location . Impression: DISH of the thoracic spine.
--- NOTE | ~2022-07-15 | XR_ITS ---
Lumbosacral Spine: AP and lateral views Clinical History: Pain COMPARISON: 07/12/2021 Findings: The normal lordotic curve is maintained. 6 lumbar type vertebral bodies are again identifie d. No fracture seen. Minimal grade 1 anterolisthesis of L5 over L6 noted. There is mild facet joint d egenerative change and minimal degenerative disc changes. The sacroiliac joints are normally outlined . Impression: Minimal grade 1 anterolisthesis of L5 over L6. Minimal degenerative spondylosis otherwise. Reviewed, dictated and finalized at location M. Impression: Minimal grade 1 anterolisthesis of L5 over L6. Minimal degenerative spondylosis otherwise.
== END 2022-07-15 06:50 | disposition home or self-care (01) ==
LOC: ANHIMG 06:53
PROVIDERS: PCP Registered Nurse; Visit Provider Emergency Medicine
DX: M48.14 Ankylosing hyperostosis [Forestier], thoracic region (principal); M47.896 Other spondylosis, lumbar region
CPT/HCPCS: 72070; 72100

== ENCOUNTER 2022-07-27 20:40 | Emergency (ER) | payer OTHER, SELFPAY ==
[2022-07-27 21:00] VITALS: BP 203/90; PULSE 62; RESP 18; TEMP 36.3; O2SAT 100
[2022-07-27 22:09] VITALS: BP 188/96; PULSE 53; RESP 17; O2SAT 100
[2022-07-27 22:37] VITALS: BP 184/89; PULSE 55; O2SAT 100
--- NOTE | 2022-07-27 23:16 | ED.GENADULT ---
HPI - General Adult General Chief complaint: Unspecified <ARCHANA Curtis Last Filed: 07/28/22 03:42> Stated complaint: high blood pressure <ARCHANA Curtis Last Filed: 07/28/22 03:42> Time Seen by Provider: 07/27/22 22:14 <ARCHANA Curtis Last Filed: 07/28/22 03:42> Source: patient <ARCHANA Curtis Last Filed: 07/28/22 03:42> Mode of arrival: ambulatory <ARCHANA Curtis Last Filed: 07/28/22 03:42> Limitations: no limitations and language barrier <ARCHANA Curtis Last Filed: 07/28/22 03:42> History of Present Illness HPI narrative: Patient is a 66 y/o male who presents to the ED with report of elevated blood pressure. Patient is primarily Portuguese-speaking. 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 Patient reports a history of hypertension and is currently on hydrochlorothiazide 25 mg, lisinopril 40 mg, and carvedilol 3.125 mg twice daily. He had previously been on amlodipine, but was taken off of this a few months ago due to lower extremity swelling. Patient reports tonight he had a brief episode of a buzzing sound in his ears. He checked his blood pressure at home and noticed it to be markedly elevated. He then prompted here. He no longer has the buzzing sound. He denies any concerns at this time. Denies headache, vision changes, dizziness, lightheadedness, chest pain, shortness of breath, weakness, numbness. <ARCHANA Curtis Last Filed: 07/28/22 03:42> Related Data Home medications: Home Medications Medication Instructions Recorded Confirmed atenolol 100 mg tablet 100 mg PO HS 01/20/20 10/20/20 hydrochlorothiazide 25 mg tablet 25 mg PO HS 01/20/20 10/20/20 lisinopril 40 mg tablet 40 mg PO DAILY 01/20/20 10/20/20 metformin 1,000 mg tablet 1,000 mg PO 01/20/20 10/20/20 pravastatin 80 mg tablet 80 mg PO HS 01/20/20 10/20/20 amlodipine 2.5 mg tablet 2.5 mg PO 04/21/20 10/20/20 blood sugar diagnostic #10 ea 04/21/20 10/20/20 lancets 28 gauge #100 ea 04/21/20 10/20/20 <Ceci Morris PA-C - Last Filed: 07/28/22 03:42> Allergies/adverse reactions: Allergies Allergy/AdvReac Type Severity Reaction Status Date / Time NSAIDS (Non-Steroidal AdvReac Other Verified 12/31/21 19:50 Anti-Inflamma <Ceci Morris PA-C - Last Filed: 07/28/22 03:42> Review of Systems Review of Systems: CONSTITUTIONAL: Denies fever, chills, or sweats. EYES: Denies visual changes. ENT: See HPI. CARDIOVASCULAR: Denies chest pain. RESPIRATORY: Denies dyspnea. GASTROINTESTINAL: Denies abdominal pain, nausea, vomiting. GENITOURINARY: Denies dysuria or hematuria. NEUROLOGIC: See HPI. <Ceci Morris PA-C - Last Filed: 07/28/22 03:42> All systems reviewed & are unremarkable except as noted in HPI and below <Ceci Morris PA-C - Last Filed: 07/28/22 03:42> PMFSH Past Medical History Medical History: Medical History Biliary sludge Chronic kidney disease, stage 2 (mild) Cystic disease of liver Diabetes mellitus Diverticulosis of sigmoid colon Gout High cholesterol Hyperlipemia Hypertension Impotence Lesion of liver Obesity Osteoarthritis Polycystic kidney disease <Ceci Morris PA-C - Last Filed: 07/28/22 03:42> Surgical History Surgical History: Surgical History H/O hernia repair <Ceci Morris PA-C - Last Filed: 07/28/22 03:42> Family History Family History: Family History (System 09/20/21 @ 12:24 by Trey Barry) Mother , 86 Kidney disease End stage renal disease Father Hypertension Son Hypercholesteremia Sibling Hypertension <Ceci Morris PA-C - Last Filed: 07/28/22 03:42> Social History Social History: Social History (Reviewed 07/28
[2022-07-27 23:52] VITALS: BP 206/90; PULSE 50; RESP 16; O2SAT 98
[2022-07-28 01:00] VITALS: BP 195/89; PULSE 79; RESP 14; O2SAT 97
[2022-07-28] MEDS: amLODIPine BESYLATE 5 MG TABLET 10 MG PO (01:00)
== END 2022-07-28 01:00 | disposition home or self-care (01) ==
LOC: ANHED 23:38
PROVIDERS: Emergency Provider Physician Assistant; PCP Emergency Medicine
DX: I12.9 Hypertensive chronic kidney disease with stage 1 through stage 4 chronic kidney disease, or unspecified chronic kidney disease (principal); E11.22 Type 2 diabetes mellitus with diabetic chronic kidney disease; N18.2 Chronic kidney disease, stage 2 (mild); E78.00 Pure hypercholesterolemia, unspecified; M10.9 Gout, unspecified; M19.90 Unspecified osteoarthritis, unspecified site; Q44.6 Cystic disease of liver; Q61.3 Polycystic kidney, unspecified; Z79.84 Long term (current) use of oral hypoglycemic drugs
CPT/HCPCS: 99283; A9270

== ENCOUNTER 2022-08-01 10:50 | Outpatient (CLI) | payer OTHER, SELFPAY ==
--- NOTE | ~2022-08-01 | XR_ITS ---
XR knee LT 3V 08/01/2022 11:12 Indication: Left knee pain Procedure: 3 views left knee Comparison: No prior studies for comparison. Findings: There is mild tricompartment osteoarthritis of the left knee. Small knee effusion. There is an unfused tibial tuberosity. No fracture or traumatic malalignment. No foreign bodies. Impression: 1: Mild osteoarthritis of the left knee. Reviewed, dictated and finalized at location [] Impression: 1: Mild osteoarthritis of the left knee.
--- NOTE | ~2022-08-01 | XR_ITS ---
XR knee RT 3V 08/01/2022 11:12 Indication: Chronic right knee pain Procedure: 3 views right knee Comparison: No prior studies for comparison. Findings: There is mild patellofemoral compartment osteoarthritis. There is a corticated ossific dens ity inferior to the patella, likely of no clinical significance. No joint effusion. No acute fracture or traumatic malalignment. No foreign bodies. Impression: 1: Mild patellofemoral compartment osteoarthritis. Reviewed, dictated and finalized at location [] Impression: 1: Mild patellofemoral compartment osteoarthritis.
== END 2022-08-01 10:51 | disposition home or self-care (01) ==
LOC: ANHIMG 10:52
PROVIDERS: PCP Emergency Medicine; Visit Provider Emergency Medicine
DX: M17.0 Bilateral primary osteoarthritis of knee (principal); M25.562 Pain in left knee; M25.561 Pain in right knee
CPT/HCPCS: 73562

== ENCOUNTER 2023-05-25 08:34 | Emergency (ER) | payer MEDICARE, MEDICAID, SELFPAY ==
--- NOTE | ~2023-05-25 | XR_ITS ---
Lumbosacral Spine: AP and lateral views Clinical History: Pain Findings: The normal lordotic curve is maintained. The vertebral bodies and posterior elements are i ntact. The intervertebral disc spaces are preserved. There is mild facet arthropathy at the lower leena mbar spine. The sacroiliac joints are normally outlined. Impression: Mild facet arthropathy lower lumbar spine. Reviewed, dictated and finalized at location . Impression: Mild facet arthropathy lower lumbar spine.
--- NOTE | ~2023-05-25 | XR_ITS ---
Thoracic spine: Clinical Indication: Back pain AP and lateral views were performed. No fracture is seen. There is normal alignment of the vertebrae. The intervertebral disc spaces appe ar normal. Paravertebral soft tissues appear normal. There is DISH of the thoracic spine. Impression: DISH of the thoracic spine. Reviewed, dictated and finalized at location . Impression: DISH of the thoracic spine.
[2023-05-25 08:50] VITALS: BP 144/85; PULSE 58; RESP 17; TEMP 36.7; O2SAT 100
--- NOTE | 2023-05-25 10:32 | ED.BACK ---
HPI - Back Pain/Injury General Chief Complaint: Back Pain/Injury Stated Complaint: back pain Time Seen by Provider: 05/25/23 08:47 History of Present Illness HPI Narrative: Patient is a 67-year-old male who presents ER with right-sided back pain. He was coming down a ladder 2 weeks ago when he slipped and fell off of it landed onto his buttock. He has had pain since then it is worse with bending over and picking something up. No radiation down his legs. No numbness or tingling. He has been on methocarbamol without improvement. He cannot take NSAIDs due to allergy. No urinary issues. He has not had any imaging. Related Data Home Medications Medication Instructions Recorded Confirmed atenolol 100 mg tablet 100 mg PO HS 01/20/20 10/20/20 hydrochlorothiazide 25 mg tablet 25 mg PO HS 01/20/20 10/20/20 lisinopril 40 mg tablet 40 mg PO DAILY 01/20/20 10/20/20 metformin 1,000 mg tablet 1,000 mg PO 01/20/20 10/20/20 pravastatin 80 mg tablet 80 mg PO HS 01/20/20 10/20/20 amlodipine 2.5 mg tablet 2.5 mg PO 04/21/20 10/20/20 blood sugar diagnostic #10 ea 04/21/20 10/20/20 lancets 28 gauge #100 ea 04/21/20 10/20/20 Allergies Allergy/AdvReac Type Severity Reaction Status Date / Time NSAIDS (Non-Steroidal AdvReac Other Verified 05/25/23 08:52 Anti-Inflamma Review of Systems Constitutional: Constitutional: Reports no additional constitutional complaints Musculoskeletal: Musculoskeletal: Reports back pain, Denies arthralgias, Denies joint swelling and Denies muscle cramps Integumentary/Breasts: Skin/Breast: Reports system reviewed and no additional complaints, except as docu Neurologic: Reports system reviewed and no additional complaints, except as documented [facility] Past Medical History Medical History Biliary sludge Chronic kidney disease, stage 2 (mild) Cystic disease of liver Diabetes mellitus Diverticulosis of sigmoid colon Gout High cholesterol Hyperlipemia Hypertension Impotence Lesion of liver Obesity Osteoarthritis Polycystic kidney disease Surgical History Surgical History H/O hernia repair Family History Family History (System 09/20/21 @ 12:24 by Trey Barry) Mother , 86 Kidney disease End stage renal disease Father Hypertension Son Hypercholesteremia Sibling Hypertension Social History Social History Smoking status: Never smoker Alcohol intake: current Alcohol use details: drinks beer on weekends, up to 10 beers in an evening, trying to decrease the amount Substance use: never Living arrangements: with family Additional living arrangements comments: , daughter, son-in-law and granddaughter Gender identity (if verbalized by the patient): Male Exam Narrative: GENERAL: Well-appearing, well-nourished, and in no acute distress. HEAD: Normocephalic, atraumatic. ENT: Mucous membranes moist. BACK: No midline tenderness of the T/L-spine. There is paraspinal tenderness on the right side from T10 down to L2. No bruising or abrasion. EXTREMITIES: Normal range of motion. No edema. SKIN: Warm, dry, no rash. NEURO: Alert and oriented x3. PSYCH: Normal mood and affect. Course Course Emergency Course: Patient informed of results. Discussed conservative treatment. Unable take NSAIDs. Recommend Tylenol and we will change his muscle relaxer. Vital Signs Vital signs: Vital Signs Temperature 98.0 F 05/25/23 08:50 Pulse Rate 58 L 05/25/23 08:50 Respiratory Rate 17 05/25/23 08:50 Blood Pressure 144/85 H 05/25/23 08:50 Pulse Oximetry 100 05/25/23 08:50 Temperature 98.0 F 05/25/23 08:50 Pulse Rate 58 L 05/25/23 08:50 Respiratory Rate 17 05/25/23 08:50 Blood Pressure 144/85 H 05/25/23 08:50 Pulse Oximetry 100 05/25/23 08:50 MDM
== END 2023-05-25 10:40 | disposition home or self-care (01) ==
PROVIDERS: Emergency Provider Emergency Medicine; PCP Emergency Medicine
DX: S39.92XA Unspecified injury of lower back, initial encounter (principal); E11.22 Type 2 diabetes mellitus with diabetic chronic kidney disease; I12.9 Hypertensive chronic kidney disease with stage 1 through stage 4 chronic kidney disease, or unspecified chronic kidney disease; N18.2 Chronic kidney disease, stage 2 (mild); E78.00 Pure hypercholesterolemia, unspecified; E66.9 Obesity, unspecified; Z68.29 Body mass index [BMI] 29.0-29.9, adult; M10.9 Gout, unspecified; M19.90 Unspecified osteoarthritis, unspecified site; Q44.6 Cystic disease of liver; Q61.3 Polycystic kidney, unspecified; Z79.84 Long term (current) use of oral hypoglycemic drugs; M48.14 Ankylosing hyperostosis [Forestier], thoracic region; W11.XXXA Fall on and from ladder, initial encounter
CPT/HCPCS: 72072; 72100; 99283

== ENCOUNTER 2023-07-10 12:19 | Outpatient (CLI) | payer MEDICARE, MEDICAID, SELFPAY ==
--- NOTE | ~2023-07-10 | XR_ITS ---
EXAMINATION: XR abdomen/kub 1V DATE: 07/10/2023 12:50 INDICATION: Left kidney stone. TECHNIQUE: A supine view of the abdomen on 2 radiographs was obtained. COMPARISON: Abdomen and pelvis CT 01/17/2022 FINDINGS: There are vascular calcifications in left pelvis. There are no dilated loops of bowel. The kidneys are obscured by bowel. IMPRESSION: 1. No visible urolithiasis. Reviewed, dictated and finalized at location A. IMPRESSION: 1. No visible urolithiasis.
== END 2023-07-10 12:20 | disposition home or self-care (01) ==
LOC: ANHIMG 12:39
PROVIDERS: PCP Emergency Medicine; Visit Provider Nurse Practitioner Family
DX: N20.0 Calculus of kidney (principal)
CPT/HCPCS: 74018

== ENCOUNTER 2023-07-11 11:32 | Outpatient (CLI) | payer MEDICARE, MEDICAID, SELFPAY ==
--- NOTE | ~2023-07-11 | XR_ITS ---
XR abdomen/kub 1V DATE: 07/11/2023 11:56 INDICATION: Nephrolithiasis TECHNIQUE: 2 supine AP views of the abdomen COMPARISON: 07/10/2023 KUB FINDINGS: No obvious renal, ureteral or urinary bladder calcified calculi are noted. Noncontrast CT a bdomen pelvis examination would be more sensitive and accurate for detection of any urinary tract hilda culi. There is a prominent amount of fecal material within the colon but no bowel obstruction. The psoas sh adows are intact. No visceromegaly is noted. IMPRESSION: Nonspecific abdomen; no radiographically evident urinary tract calculi Reviewed, dictated and finalized at Location A. Reviewed, dictated and finalized at location B. IMPRESSION: Nonspecific abdomen; no radiographically evident urinary tract calc guera
== END 2023-07-11 11:33 | disposition home or self-care (01) ==
PROVIDERS: PCP Emergency Medicine; Visit Provider Nurse Practitioner Family
DX: N20.0 Calculus of kidney (principal)
CPT/HCPCS: 74018

== ENCOUNTER 2023-07-13 09:32 | Outpatient (CLI) | payer MEDICARE, MEDICAID, SELFPAY ==
[2023-07-13 10:33] LABS: Appearance Urine Clear (Clear); Bilirubin Urine Negative (Negative); Blood Urine Negative (Negative); Color Urine Yellow (Yellow); Glucose Urine UA Negative (Negative); Ketones Urine Trace mg/dL (Negative); Leukocyte Esterase Ur Negative LEU/UL (Negative); Nitrate Urine Negative (Negative); Protein Urine Negative (Negative); Specific Grav Ur 1.022 (1.001-1.035); Urobilinogen Urine 0.2 mg/dL (<2.0)
[2023-07-13 10:40] LABS: Add Urine Microscopic? NO
== END 2023-07-13 09:33 | disposition home or self-care (01) ==
LOC: ANHLAB 09:38
PROVIDERS: PCP Emergency Medicine; Referring Provider Internal Medicine Nephrology; Visit Provider Nurse Practitioner Family
DX: N20.0 Calculus of kidney (principal); Q61.2 Polycystic kidney, adult type; I10 Essential (primary) hypertension
CPT/HCPCS: 81003

== ENCOUNTER 2023-10-24 11:43 | Outpatient (CLI) | payer MEDICARE, MEDICAID, SELFPAY ==
--- NOTE | ~2023-10-24 | XR_ITS ---
XR knee RT 3V 10/24/2023 12:06 Indication: Right knee pain Procedure: 3 views right knee Comparison: No prior studies for comparison. Findings: No fracture, subluxation or dislocation. There is moderate joint effusion. There is mild tr icompartment osteoarthritis. Prominent tibial tuberosity. Impression: 1: Mild tricompartment osteoarthritis. 2: Moderate joint effusion. Reviewed, dictated and finalized at location B. Impression: 1: Mild tricompartment osteoarthritis. 2: Moderate joint effusion.
--- NOTE | ~2023-10-24 | XR_ITS ---
XR knee LT 3V 10/24/2023 12:06 Indication: Left knee pain Procedure: 3 views left knee Comparison: 08/01/2022 Findings: There is mild tricompartment osteoarthritis. No acute fracture or traumatic malalignment. N o significant joint effusion. There is an unfused tibial tuberosity. Impression: 1: Mild tricompartment osteoarthritis. Reviewed, dictated and finalized at location B. Impression: 1: Mild tricompartment osteoarthritis.
--- NOTE | ~2023-10-24 | XR_ITS ---
EXAMINATION: XR wrist RT min 3V DATE: 10/24/2023 12:06 INDICATION: Multiple joint pain. TECHNIQUE: 4 views of right wrist were obtained. COMPARISON: None. FINDINGS: Alignment is normal. No fracture. There is mild osteoarthritis of triscaphe joint, first ca rpometacarpal joint, and first-fourth metacarpophalangeal joints. IMPRESSION: 1. Mild polyarticular osteoarthritis. Reviewed, dictated and finalized at location A.
== END 2023-10-24 11:44 | disposition home or self-care (01) ==
LOC: ANHIMG 11:50
PROVIDERS: PCP Emergency Medicine; Visit Provider Emergency Medicine
DX: M25.50 Pain in unspecified joint (principal); M19.031 Primary osteoarthritis, right wrist; M25.461 Effusion, right knee; M17.0 Bilateral primary osteoarthritis of knee
CPT/HCPCS: 73110; 73562

== ENCOUNTER 2023-12-10 16:48 | Emergency (ER) | payer MEDICARE, MEDICAID, SELFPAY ==
--- NOTE | ~2023-12-10 | XR_ITS ---
XR chest 2V Ordering provider: Dori Kaur MD History: 68 years Male with . CP . Comparison: June 28, 2021 FINDINGS: MEDIASTINUM: The cardiac silhouette is not enlarged. LUNGS: No infiltrates, effusions or pneumothorax. OTHER: No free air under the diaphragm. Degenerative changes of the spine. IMPRESSION: No acute cardiopulmonary pathology. Reviewed, dictated and finalized at location A.
[2023-12-10 16:51] VITALS: BP 161/72; PULSE 60; RESP 16; TEMP 36.3; O2SAT 100
--- NOTE | 2023-12-10 16:51 | ECG_ITS ---
Test Date: 2023-12-10 16:55:22 Measurements Intervals [place] Rate: 57 P: 73 [place]: 212 QRS: -13 QRSD: 97 T: 27 QT: 406 QTc: 396 Interpretive Statements SINUS BRADYCARDIA WITH FIRST DEGREE AV BLOCK NONSPECIFIC T-WAVE ABNORMALITY ABNORMAL ECG No previous ECG available for comparison Electronically Signed On 12-11-2023 10:39:57 CDT by Tahir Villanueva M.D.
[2023-12-10 17:03] LABS: Basophils Percent Auto 0.2 % (0.2-1.2); Eosinophils Absolute Auto 0.1 K/mm3 (0-0.3); Eosinophils Percent Auto 1.2 % (0-4.4); Hematocrit 33.4 % (42.0-52.0); Hemoglobin 11.6 g/dL (14.0-18.0); Immature Granulocyte Absolute 0.01 K/mm3 (0.00-0.031); Immature Granulocyte Percent A 0.2 % (0-0.5); Lymphocytes Absolute Auto 2.35 K/mm3 (0.9-3.2); Lymphocytes Percent Auto 36.4 % (18.3-44.2); Mean Corpuscular HGB Conc 34.7 g/dl (32-36); Mean Corpuscular Hemoglobin 28.2 pg (26-34); Mean Corpuscular Volume 81.1 fl (80-100); Mean Platelet Volume 10.5 fl (7.4-10.4); Monocytes Absolute Auto 0.6 K/mm3 (0.1-0.6); Monocytes Percent Auto 9.4 % (2.6-8.5); Neutrophils Absolute Auto 3.4 K/mm3 (1.3-6.7); Neutrophils Percent Auto 52.6 % (45.5-73.1); Platelet Count Result 232 k/mm3 (150-375); Red Blood Count 4.12 M/mm3 (4.6-6.20); Red Cell Distribution Width 15.4 % (11.5-14.5); White Blood Count 6.5 K/mm3 (4.5-10.0)
[2023-12-10 17:13] LABS: Prothrombin Time 13.7 Seconds (11.1-14.7)
[2023-12-10 17:14] LABS: Alanine Aminotransferase 29 U/L (6-50); Albumin Level 4.5 g/dL (3.5-5.1); Alkaline Phosphatase 71 U/L (38-126); Anion Gap 10 mmol/L (4-12); Aspartate Amino Transferase 42 U/L (17-59); Bilirubin,Total 0.8 mg/dL (0.2-1.3); Blood Urea Nitrogen 35 mg/dL (9-20); Calcium 9.6 mg/dL (8.4-10.2); Carbon Dioxide 26 mmol/L (22-30); Chloride 102 mmol/L (98-107); Estimated CRCL calculation 39 ml/min; Estimated Glomerular Filt Rate 41; Glucose 96 mg/dL (65-110); Lipase 73 U/L (23-300); Partial Thromboplastin Time 30.6 Seconds (22.3-36.8); Potassium 3.7 mmol/L (3.4-5.0); Sodium 138 mmol/L (137-145)
[2023-12-10 17:25] LABS: Troponin I < 0.012 ng/mL (0.000-0.034)
[2023-12-10] MEDS: MORPHINE SULFATE (*CRX) 2 MG/ML INJ IV PUSH (17:42)
[2023-12-10 17:52] LABS: D Dimer 0.39 ug/mL (<0.48)
--- NOTE | 2023-12-10 18:48 | ED.GENADULT ---
HPI - General Adult General Chief complaint: Chest Pain Stated complaint: chest pain Time Seen by Provider: 12/10/23 17:15 History of Present Illness HPI narrative: 68-year-old male presenting to the emergency department for evaluation for intermittent left-sided chest pain. Patient reports he was sitting resting on the couch when he had onset of a ?pressure left-sided chest pain. Patient states the pain quickly resolved. This happened approximately 30 minutes prior to arrival. Patient states since then he has had brief intermittent sharp shooting pains into his left chest. Related Data Home Medications Medication Instructions Recorded Confirmed atenolol 100 mg tablet 100 mg PO HS 01/20/20 10/20/20 hydrochlorothiazide 25 mg tablet 25 mg PO HS 01/20/20 10/20/20 lisinopril 40 mg tablet 40 mg PO DAILY 01/20/20 10/20/20 metformin 1,000 mg tablet 1,000 mg PO 01/20/20 10/20/20 pravastatin 80 mg tablet 80 mg PO HS 01/20/20 10/20/20 amlodipine 2.5 mg tablet 2.5 mg PO 04/21/20 10/20/20 blood sugar diagnostic #10 ea 04/21/20 10/20/20 lancets 28 gauge #100 ea 04/21/20 10/20/20 Allergies Allergy/AdvReac Type Severity Reaction Status Date / Time NSAIDS (Non-Steroidal AdvReac Other Verified 12/10/23 17:41 Anti-Inflamma Review of Systems Review of Systems: All systems reviewed & are unremarkable except as noted in HPI and below PMFSH Past Medical History Medical History Biliary sludge Chronic kidney disease, stage 2 (mild) Cystic disease of liver Diabetes mellitus Diverticulosis of sigmoid colon Gout High cholesterol Hyperlipemia Hypertension Impotence Lesion of liver Obesity Osteoarthritis Polycystic kidney disease Surgical History Surgical History H/O hernia repair Family History Family History (System 09/20/21 @ 12:24 by Trey Barry) Mother , 86 Kidney disease End stage renal disease Father Hypertension Son Hypercholesteremia Sibling Hypertension Social History Social History Smoking status: Never smoker Alcohol intake: current Alcohol use details: drinks beer on weekends, up to 10 beers in an evening, trying to decrease the amount Substance use: never Living arrangements: with family Additional living arrangements comments: , daughter, son-in-law and granddaughter Gender identity (if verbalized by the patient): Male Exam Narrative: APPEARANCE: Well appearing, no pain, no distress, well-nourished. HEAD: normocephalic, atraumatic. EYES: PERRLA/EOMI, conjunctivae clear. NOSE: Normal no drainage EARS:TMS clear with good light reflex. THROAT: Pharynx clear, no exudate. NECK: Supple. No adenopathy, no masses. RESPIRATORY: Airway patent, respirations nonlabored. Clear to auscultation bilaterally, no rales, rhonchi, wheezing. CARDIOVASCULAR: Regular rate and rhythm without murmurs rubs or gallops. ABDOMINAL: Soft, nontender, nondistended, normal bowel sounds MUSCULOSKELETAL: Moves all extremities. Strength/ROM intact, No edema, No calf tenderness. NEURO: Alert. Cranial nerves II through XII intact. Grossly intact SKIN: Warm, dry. Normal Color Course Vital Signs Vital signs: Vital Signs Temperature 97.3 F L 12/10/23 16:51 Pulse Rate 60 12/10/23 16:51 Respiratory Rate 16 12/10/23 16:51 Blood Pressure 161/72 H 12/10/23 16:51 Pulse Oximetry 100 12/10/23 16:51 Oxygen Delivery Room Air 12/10/23 16:51 Temperature 97.3 F L 12/10/23 16:51 Pulse Rate 88 12/10/23 20:34 Respiratory Rate 15 12/10/23 20:34 Blood Pressure 148/90 H 12/10/23 20:34 Pulse Oximetry 100 12/10/23 20:34 Oxygen Delivery Room Air 12/10/23 17:[address] [facility] Narrative Medical decision making narrative: 68-year-old male presenting emergency department f
--- NOTE | 2023-12-10 19:43 | ECG_ITS ---
Test Date: 2023-12-10 19:54:29 Measurements Intervals [place] Rate: 56 P: -5 NV: 206 QRS: -19 QRSD: 106 T: 30 QT: 429 QTc: 416 Interpretive Statements SINUS BRADYCARDIA MODERATE T-WAVE ABNORMALITY, CONSIDER ANTERIOR ISCHEMIA [-0.1+ mV T WAVE IN V3/V4] ABNORMAL ECG Compared to ECG 12/10/2023 16:55:22 Possible ischemia now present First degree AV block no longer present T-wave abnormality still present Electronically Signed On 12-11-2023 10:42:24 CDT by Tahir Villanueva M.D.
[2023-12-10 20:12] LABS: Troponin I < 0.012 ng/mL (0.000-0.034)
[2023-12-10 20:34] VITALS: BP 148/90; PULSE 88; RESP 15; O2SAT 100
== END 2023-12-10 20:35 | disposition home or self-care (01) ==
PROVIDERS: Emergency Medicine; Emergency Provider Emergency Medicine; PCP Emergency Medicine
DX: R07.89 Other chest pain (principal); E11.22 Type 2 diabetes mellitus with diabetic chronic kidney disease; I12.9 Hypertensive chronic kidney disease with stage 1 through stage 4 chronic kidney disease, or unspecified chronic kidney disease; N18.2 Chronic kidney disease, stage 2 (mild); E78.00 Pure hypercholesterolemia, unspecified; E66.9 Obesity, unspecified; Z68.29 Body mass index [BMI] 29.0-29.9, adult; M19.90 Unspecified osteoarthritis, unspecified site; M10.9 Gout, unspecified; Q61.3 Polycystic kidney, unspecified; Q44.6 Cystic disease of liver; Z79.84 Long term (current) use of oral hypoglycemic drugs; Z79.899 Other long term (current) drug therapy; I44.0 Atrioventricular block, first degree; R00.1 Bradycardia, unspecified; R94.31 Abnormal electrocardiogram [ECG] [EKG]
CPT/HCPCS: 36415; 71046; 80053; 83690; 84484; 85025; 85380; 85610; 85730; 93005; 96374; 99284; J2270

== ENCOUNTER 2023-12-16 11:43 | Emergency (ER) | payer MEDICARE, MEDICAID, SELFPAY ==
[2023-12-16 11:56] VITALS: BP 130/55; PULSE 60; RESP 19; TEMP 37.2; O2SAT 100
--- NOTE | 2023-12-16 12:50 | ED.LOWEXIN ---
HPI - Extremity Injury (Lower) General Chief Complaint: Extremity Injury, Lower Stated Complaint: Right Knee Pain Time Seen by Provider: 12/16/23 12:50 Source: patient, RN notes reviewed and old records reviewed Mode of arrival: ambulatory Limitations: no limitations History of Present Illness HPI Narrative: Patient with stated history of gout presents with complaints of right knee pain. He reports that he has had gout for several years, was recently treated with a short course of colchicine, reports that he had improvement during treatment, but now has pain again. Treatment was earlier this month. He denies any recent injury or trauma. He denies any fever, chills, sweats. No other concerns or complaints today. Related Data Home Medications Medication Instructions Recorded Confirmed atenolol 100 mg tablet 100 mg PO HS 01/20/20 12/16/23 hydrochlorothiazide 25 mg tablet 25 mg PO HS 01/20/20 12/16/23 lisinopril 40 mg tablet 40 mg PO DAILY 01/20/20 12/16/23 metformin 1,000 mg tablet 1,000 mg PO DIRECTED 01/20/20 12/16/23 pravastatin 80 mg tablet 80 mg PO HS 01/20/20 12/16/23 amlodipine 2.5 mg tablet 2.5 mg PO DAILY 04/21/20 12/16/23 blood sugar diagnostic #10 ea 04/21/20 12/16/23 lancets 28 gauge #100 ea 04/21/20 12/16/23 atorvastatin 80 mg tablet 80 mg PO DAILY 12/16/23 12/16/23 Allergies Allergy/AdvReac Type Severity Reaction Status Date / Time NSAIDS (Non-Steroidal AdvReac Other Verified 12/16/23 12:12 Anti-Inflamma Review of Systems Review of Systems: All systems reviewed & are unremarkable except as noted in HPI and below Constitutional: Constitutional: Reports no additional constitutional complaints ENT: Reports system reviewed and no additional complaints, except as documented Cardiovascular: Cardiovascular: Reports no additional cardiovascular complaints Respiratory: Respiratory: Reports no additional respiratory complaints Gastrointestinal: Gastrointestinal: Reports no additional gastrointestinal complaints Musculoskeletal: Musculoskeletal: Reports no additional musculoskeletal complaints, Reports as per HPI and Reports arthralgias PMFSH Past Medical History Medical History Biliary sludge Chronic kidney disease, stage 2 (mild) Cystic disease of liver Diabetes mellitus Diverticulosis of sigmoid colon Gout High cholesterol Hyperlipemia Hypertension Impotence Lesion of liver Obesity Osteoarthritis Polycystic kidney disease Surgical History Surgical History H/O hernia repair Family History Family History (System 09/20/21 @ 12:24 by Trey Barry) Mother , 86 Kidney disease End stage renal disease Father Hypertension Son Hypercholesteremia Sibling Hypertension Social History Social History Smoking status: Never smoker Alcohol intake: current Alcohol use details: drinks beer on weekends, up to 10 beers in an evening, trying to decrease the amount Substance use: never Living arrangements: with family Additional living arrangements comments: , daughter, son-in-law and granddaughter Gender identity (if verbalized by the patient): Male Comments At the time of my signature, I reviewed and agree with the nursing past medical, surgical, social, and family history. There is no relevant family history pertinent to the patient complaint. Exam Const: General: cooperative, no acute distress, alert and awake Orientation/consciousness: oriented to person, oriented to place and oriented to time HENMT: Head: normal to inspection Resp: Effort & Inspection: normal respiratory effort and able to speak in complete sentences Auscultation: clear to auscultation bilaterally, no crackles, no rales, no rhonchi and no wheezes Cardio: Palpation: normal PMI Rate: regular rate Rhythm: regular rhythm Heart sounds: S1 normal heart sound present and S2 normal heart sound present Neuro: General: oriented to person, oriented to place and oriented to time Cranial nerves: Yes CN's II-XII intact bilaterally Extrem: Right lower extremity: knee Details: tenderness, swelling, normal ROM and warmth Psych: Appearance: grossly normal Thought process: Normal thought process present Insight: Good insight present (Psych) Judgement: Good judgement present (Psych) Course Course Level of Care: Express Care Visit Vital Signs Vital signs: Vital Signs Temperature 98.9 F 12/16/23 11:56 Pulse Rate 60 12/16/23 11:56 Respiratory Rate 19 12/16/23 11:56 Blood Pressure 130/55 L 12/16/23 11:56 Pulse Oximetry 100 12/16/23 11:56 Oxygen Delivery Room Air 12/16/23 11:56 Temperature 98.9 F 12/16/23 11:56 Pulse Rate 60 12/16/23 11:56 Respiratory Rate 19 12/16/23 11:56 Blood Pressure 130/55 L 12/16/23 11:56 Pulse Oximetry 100 12/16/23 11:56 Oxygen Delivery Room Air 12/16/23 11:56 Reviewed MDM - Extremity Injury (Lower) MDM Narrative Medical decision making narrative: History and exam consistent with gout. Not comfortable prescribing colchicine, as I do not know what kidneys function looks like and patient does have history of CKD as well as diabetes and hypertension. Will treat with prednisone burst. Patient is strongly urged follow with primary care provider. Emergency department for new or worse symptoms. Discharge instructions reviewed with patient, as well as provided in writing per nursing staff. The instructions also include specific and strict return/GO TO THE ER as well as f/u information. All questions have been answered, and the patient deny any further questions with discharge and discharge plan. Some parts of this dictation were generated by voice recognition software and may contain typographical and/or grammatical inaccuracies. Differential Diagnosis Differential diagnosis: Likely other (Knee sprain, gout) Medical Records Attestation: I reviewed the patient's medical records. Discharge Plan Discharge Clinical Impression: Gout attack Patient Disposition: Home, Self-Care Condition: Stable Instructions: Low Purine Diet (ED), Gout (ED) Additional Instructions: Follow-up with primary care provider, emergency department for new or worse symptoms Patient Language: Ghanaian Prescriptions: New prednisone 50 mg tablet 50 mg PO DAILY Qty: 5 0RF No Action atorvastatin 80 mg tablet 80 mg PO DAILY (DME) OneTouch Ultra Blue Test Strip Strip See Rx Instructions .ROUTE .MEDSUPPLY Qty: 10 Rx Instructions: As directed amlodipine 2.5 mg tablet 2.5 mg PO DAILY (DME) lancets 28 gauge misc See Rx Instructions .ROUTE .MEDSUPPLY Qty: 100 Rx Instructions: As directed atenolol 100 mg tablet 100 mg PO HS pravastatin 80 mg tablet 80 mg PO HS metformin 1,000 mg tablet 1,000 mg PO DIRECTED hydrochlorothiazide 25 mg tablet 25 mg PO HS lisinopril 40 mg tablet 40 mg PO DAILY prednisone 20 mg tablet 40 mg PO DAILY Qty: 10 0RF amlodipine 10 mg tablet 10 mg PO DAILY Qty: 30 0RF cyclobenzaprine 10 mg tablet 10 mg PO TID PRN (Reason: muscle spasm) Qty: 20 0RF Follow-up/Referrals: Won,Ivonne Hinds MD [Primary Care Provider] - 3 Days Time of Disposition: 13:06
== END 2023-12-16 13:10 | disposition home or self-care (01) ==
PROVIDERS: Emergency Provider Nurse Practitioner Family; PCP Emergency Medicine
DX: M10.9 Gout, unspecified (principal); I12.9 Hypertensive chronic kidney disease with stage 1 through stage 4 chronic kidney disease, or unspecified chronic kidney disease; E11.22 Type 2 diabetes mellitus with diabetic chronic kidney disease; N18.2 Chronic kidney disease, stage 2 (mild); Z79.84 Long term (current) use of oral hypoglycemic drugs; E78.00 Pure hypercholesterolemia, unspecified; I10 Essential (primary) hypertension; M19.90 Unspecified osteoarthritis, unspecified site; Q61.3 Polycystic kidney, unspecified; Q44.6 Cystic disease of liver; E66.9 Obesity, unspecified; Z68.30 Body mass index [BMI] 30.0-30.9, adult
CPT/HCPCS: 99213; G0463